=== PATIENT | male | born 1935 | race Caucasian/White ===

== ENCOUNTER → 2017-02-13 | Outpatient (CLI) | payer OTHER ==
[~2017-02-13] MED LIST: ASPI81TA7 PO; ATEN25TA PO; ELIQ5TAB PO; LISI20TA PO
--- NOTE | 2017-02-13 14:15 | REP ---
CT HEAD WITHOUT CONTRAST: HISTORY: Subdural hematoma. Previous studies are not available for comparison. Areas of decreased attentuation are present in the periventricular white matter. This represents small vessel ischemic disease. There is no intraparenchymal hemorrhage or mass. The ventricular system and cortical sulci are dilated consistent with mild volume loss. A hypodense subdural hematoma with a small amount of rebleeding is present over the right cerebral hemisphere. This measures 1.3 cm in width. There is mass effect with very minimal midline shift to the left. The visualized sinuses are clear. IMPRESSION: 1. Small vessel ischemic disease. 2. Mild volume loss. 3. There is a 1.3 cm hypodense subdural hematoma with a small amount of rebleeding over the right cerebral hemisphere. There is very minimal midline shift to the left. Signed by Richard Pa MD 02/13/2017 02:20 P
== END ==
LOC: M RAD 13:34
PROVIDERS: ATTEND Neurological Surgery
DX: I62.03 Nontraumatic chronic subdural hemorrhage (principal)

== ENCOUNTER → 2017-03-08 | Outpatient (REF) | payer OTHER ==
[2017-03-08 18:52] LABS: PERCENT SATURATION 21.4 % (19.7-37.4)
== END ==
LOC: M LABNEURO 17:22
PROVIDERS: ATTEND Psychiatry & Neurology Neurology
DX: E83.119 Hemochromatosis, unspecified (principal)

== ENCOUNTER 2018-01-11 08:12 | Day surgery (SDC) | payer OTHER ==
[2018-01-11] MEDS: OFLOXACIN 0.3 % (OCUFLOX) OPTH SOL 5ML OS (09:21)
[2018-01-11] MEDS: PHENYLEPHRINE 2.5% OPHTH SOL 2ML OS (09:21)
[2018-01-11] MEDS: TROPICAMIDE 1% OPHTH SOLN 2ML OS (09:21)
[2018-01-11] MEDS: PROPARACAINE 0.5% OPHTH SOL 15ML OS (09:21)
[2018-01-11] MEDS ORDERED: fentaNYL 100 MCG/2 ML INJECTION (J3010) As Ordered (09:56)
[2018-01-11] MEDS ORDERED: MIDAZOLAM INJ 2 MG/2 ML VIAL (J2250) As Ordered (09:56)
[2018-01-11] MEDS: BALANCED SALT IRRIGATION SOLUTION 500ML BAG (FOR OR EYE MACHINE) As Ordered (10:29)
[2018-01-11] MEDS: POVIDONE-IODINE 5% OPHTH PREP SOL 30ML As Ordered (10:29)
[2018-01-11] MEDS: DUOVISC (0.50ML VISCOAT/0.55ML PROVISC) OPHTH KIT As Ordered (10:30)
[2018-01-11] MEDS: CEFUROXIME 1MG/0.1ML INTRACAMERAL INJ As Ordered (10:30)
[2018-01-11] MEDS: LIDOCAINE 0.75%/EPINEPHRINE 0.025% IN BSS 1ML SYR INTRACAMERAL (OR ONLY) As Ordered (10:30)
== END 2018-01-11 11:30 | disposition home or self-care (01) ==
LOC: M SDC 08:12
DX: H25.12 Age-related nuclear cataract, left eye (principal); I48.91 Unspecified atrial fibrillation; I10 Essential (primary) hypertension; F03.90 Unspecified dementia, unspecified severity, without behavioral disturbance, psychotic disturbance, mood disturbance, and anxiety; N40.0 Benign prostatic hyperplasia without lower urinary tract symptoms; Z79.899 Other long term (current) drug therapy; Z86.73 Personal history of transient ischemic attack (TIA), and cerebral infarction without residual deficits; Z87.442 Personal history of urinary calculi; Z86.711 Personal history of pulmonary embolism
CPT/HCPCS: 66984

== ENCOUNTER → 2018-01-16 | Outpatient (REF) | payer OTHER ==
[2018-01-16 14:20] LABS: APPEARANCE, URINE CLOUDY (CLEAR); BACTERIA, URINE AUTO NEGATIVE (NEGATIVE); BILIRUBIN, URINE AUTO NEGATIVE (NEGATIVE); BLOOD, URINE BLOOD 3+ (NEGATIVE); COLOR, URINE YELLOW (YELLOW); GLUCOSE, URINE (UA) AUTO NEGATIVE (NEGATIVE); KETONE, URINE AUTO NEGATIVE (NEGATIVE); LEUKOCYTE ESTERASE, URINE AUTO NEGATIVE (NEGATIVE); MUCUS, URINE SMALL (NEGATIVE); NITRITE, URINE AUTO NEGATIVE (NEGATIVE); PROTEIN, URINE AUTO 1+ mg/dL (NEGATIVE); RBC, URINE AUTO TNTC /HPF (0-3); SPECIFIC GRAVITY URINE AUTO 1.018 (1.002-1.035); SQUAMOUS EPITHELIAL CELL UR AU 0 /HPF (0-6); UROBILINOGEN, URINE AUTO 0.2 mg/dL (0.0-2.0); WBC, URINE AUTO 15 /HPF (0-3)
== END ==
LOC: M SMT 13:09
DX: R31.0 Gross hematuria (principal)
CPT/HCPCS: 81001

== ENCOUNTER 2018-01-18 08:49 | Day surgery (SDC) | payer OTHER ==
[2018-01-18] MEDS: TROPICAMIDE 1% OPHTH SOLN 2ML OD (09:45)
[2018-01-18] MEDS: PHENYLEPHRINE 2.5% OPHTH SOL 2ML OD (09:46)
[2018-01-18] MEDS: OFLOXACIN 0.3 % (OCUFLOX) OPTH SOL 5ML OD (09:46)
[2018-01-18] MEDS: PROPARACAINE 0.5% OPHTH SOL 15ML OD (09:46)
[2018-01-18] MEDS ORDERED: MIDAZOLAM INJ 2 MG/2 ML VIAL (J2250) As Ordered (10:12)
[2018-01-18] MEDS ORDERED: fentaNYL 100 MCG/2 ML INJECTION (J3010) As Ordered (10:12)
[2018-01-18] MEDS: POVIDONE-IODINE 5% OPHTH PREP SOL 30ML As Ordered (10:46)
[2018-01-18] MEDS: LIDOCAINE 0.75%/EPINEPHRINE 0.025% IN BSS 1ML SYR INTRACAMERAL (OR ONLY) As Ordered (10:47)
[2018-01-18] MEDS: DUOVISC (0.50ML VISCOAT/0.55ML PROVISC) OPHTH KIT As Ordered (10:47)
[2018-01-18] MEDS: BALANCED SALT IRRIGATION SOLUTION 500ML BAG (FOR OR EYE MACHINE) As Ordered (10:47)
[2018-01-18] MEDS: CEFUROXIME 1MG/0.1ML INTRACAMERAL INJ As Ordered (10:47)
== END 2018-01-18 11:30 | disposition home or self-care (01) ==
LOC: M SDC 08:49
DX: H25.11 Age-related nuclear cataract, right eye (principal); I48.91 Unspecified atrial fibrillation; I48.92 Unspecified atrial flutter; H91.13 Presbycusis, bilateral; E78.1 Pure hyperglyceridemia; R73.01 Impaired fasting glucose; I10 Essential (primary) hypertension; F03.90 Unspecified dementia, unspecified severity, without behavioral disturbance, psychotic disturbance, mood disturbance, and anxiety; E55.9 Vitamin D deficiency, unspecified; Z79.899 Other long term (current) drug therapy; Z86.73 Personal history of transient ischemic attack (TIA), and cerebral infarction without residual deficits; Z86.711 Personal history of pulmonary embolism; Z87.442 Personal history of urinary calculi; Z96.1 Presence of intraocular lens
CPT/HCPCS: 66984

== ENCOUNTER → 2018-03-05 | Outpatient (REF) | payer OTHER | LOC: M SMT 17:04 | DX: R31.0 Gross hematuria (principal) | CPT/HCPCS: 88108 ==

== ENCOUNTER → 2018-06-12 | Outpatient (CLI) | payer OTHER ==
[2018-06-12 13:50] LABS: APPEARANCE, URINE CLEAR (CLEAR); BACTERIA, URINE AUTO NEGATIVE (NEGATIVE); BILIRUBIN, URINE AUTO NEGATIVE (NEGATIVE); BLOOD, URINE BLOOD 1+ (NEGATIVE); COLOR, URINE YELLOW (YELLOW); GLUCOSE, URINE (UA) AUTO NEGATIVE (NEGATIVE); KETONE, URINE AUTO NEGATIVE (NEGATIVE); LEUKOCYTE ESTERASE, URINE AUTO NEGATIVE (NEGATIVE); MUCUS, URINE SMALL (NEGATIVE); NITRITE, URINE AUTO NEGATIVE (NEGATIVE); PROTEIN, URINE AUTO NEGATIVE (NEGATIVE); RBC, URINE AUTO 0 /HPF (0-3); SPECIFIC GRAVITY URINE AUTO 1.017 (1.002-1.035); SQUAMOUS EPITHELIAL CELL UR AU 0 /HPF (0-6); UROBILINOGEN, URINE AUTO 0.2 mg/dL (0.0-2.0); WBC, URINE AUTO 1 /HPF (0-3)
[2018-06-14 08:06] LABS: PSA TOTAL 2.5 ng/mL (0.0-4.0)
== END ==
LOC: M SMT 10:59
DX: R31.0 Gross hematuria (principal)
CPT/HCPCS: 84154

== ENCOUNTER → 2020-05-22 | Outpatient (REF) | payer MEDICARE ==
[~2020-05-22] MED LIST changes: +ASPI-546 PO; -ASPI81TA7 PO; +DONETAB6 PO; -LISI20TA PO; +LISI20TA35 PO; +MEMA1TAB3 PO; +PRAD75CA5 PO; +VITA20008 PO; +XANA0.25 PO
[2020-05-26 12:15] LABS: TOTAL PROTEIN 7.4 GM/DL (6.4-8.2)
[2020-05-26 13:51] LABS: ALBUMIN 4.61 GM/DL (3.29-5.55); ALBUMIN % 62.3 % (55.8-66.1); ALPHA-1-GLOBULIN % 3.7 % (2.9-4.9); ALPHA-1-GLOBULINS 0.27 GM/DL (0.17-0.41); ALPHA-2-GLOBULINS 0.84 GM/DL (0.42-0.99); ALPHA-2-GLOBULINS % 11.4 % (7.1-11.8); BETA-1-GLOBULINS 0.39 GM/DL (0.28-0.60); BETA-1-GLOBULINS % 5.3 % (4.7-7.2); BETA-2-GLOBULINS 0.35 GM/DL (0.19-0.55); BETA-2-GLOBULINS % 4.7 % (3.2-6.5); GAMMA GLOBULIN % 12.6 % (11.1-18.8); GAMMA GLOBULINS 0.93 GM/DL (0.65-1.58)
[2020-05-26 17:07] LABS: ANCA-ATYPICAL <1:20 titer (Neg:<1:20); ANTINUCLEAR ANTIBODIES DIRECT Negative (Negative); CYTOPLASMIC NEUTROP AB ANCA-C <1:20 titer (Neg:<1:20); FREE LAMBDA LIGHT CHAINS SERUM 17.9 mg/L (5.7-26.3); KAPPA/LAMBDA RATIO SERUM 1.06 (0.26-1.65); PERINUCLEAR AB ANCA-P <1:20 titer (Neg:<1:20)
== END ==
LOC: M LAB REF 17:10
PROVIDERS: ATTEND Internal Medicine Nephrology
DX: R80.9 Proteinuria, unspecified (principal)